=== PATIENT | female | born 1980 | race Caucasian/White ===

== ENCOUNTER 2017-03-02 21:56 | Emergency (ER) | payer BC, SELFPAY ==
[2017-03-02 21:56] VITALS: BMI 34.0
[2017-03-02 22:02] VITALS: BP 138/84; PULSE 86; RESP 16; TEMP 98.7; O2SAT 100
--- NOTE | 2017-03-02 23:16 | ED PDOC ---
Lower Extremity Pain/Injury Time Seen by Provider: 03/02/17 22:04 Chief Complaint (Nursing): Lower Extremity Problem/Injury Chief Complaint (Provider): Left knee injury - Fell History Per: Patient History/Exam Limitations: no limitations Onset/Duration Of Symptoms: Hrs Current Symptoms Are (Timing): Still Present Severity: Moderate Pain Scale Rating Of: 6 Additional Complaint(s): Pain and swelling, left knee. No medications for pain. Past Medical History Reviewed: Historical Data, Nursing Documentation, Vital Signs Vital Signs: Last Vital Signs Temp 98.7 F 03/02/17 22:00 Pulse 86 03/02/17 22:00 Resp 16 03/02/17 22:00 BP 138/84 03/02/17 22:00 Pulse Ox 100 03/02/17 22:00 - Medical History PMH: No Chronic Diseases - Surgical History Surgical History: No Surg Hx - Family History Family History: States: No Known Family Hx - Living Arrangements Living Arrangements: With Family - Social History Current smoker - smoking cessation education provided: No - Allergies Allergies/Adverse Reactions: Allergies Allergy/AdvReac Type Severity Reaction Status Date / Time No Known Allergies Allergy Verified 03/02/17 22:00 Review of Systems ROS Statement: Except As Marked, All Systems Reviewed And Found Negative Constitutional: Negative for: Fever, Chills Musculoskeletal: Positive for: Other (Left knee pain) Skin: Negative for: Bruising Physical Exam - Reviewed Nursing Documentation Reviewed: Yes Vital Signs Reviewed: Yes - Physical Exam Appears: Positive for: Well, Non-toxic, No Acute Distress Head Exam: Positive for: ATRAUMATIC, NORMAL INSPECTION, NORMOCEPHALIC Skin: Positive for: Normal Color (No ecchymosis ), Warm Eye Exam: Positive for: Normal appearance ENT: Positive for: Normal ENT Inspection Neck: Positive for: Normal, Painless ROM Respiratory: Negative for: Accessory Muscle Use, Respiratory Distress Pulses-Dorsalis Pedis (L): 2+ Pulses-Post. Tibialis (L): 2+ Pulses-Post. Tibialis (R): 2+ Back: Positive for: Normal Inspection Extremity: Positive for: Tenderness (Patella ), Swelling (Suprapatella). Negative for: Normal ROM (Decreasd flexion due to pain ) Neurologic/Psych: Positive for: Alert, Oriented - ECG O2 Sat by Pulse Oximetry: 100 Medical Decision Making Medical Decision Making: X-ray normal. Knee immobilizer and crutches. Disposition - Clinical Impression Clinical Impression: Knee injury - Patient ED Disposition Is Patient to be Admitted: No Counseled Patient/Family Regarding: Diagnosis, Need For Followup, Rx Given - Disposition Referrals: Orlando Negrete III, MD [Staff Provider] - Disposition: Routine/Home Disposition Time: 23:19 Condition: GOOD Additional Instructions: Ice, elevation, motrin. Follow-up with orthopedics. Instructions: Knee Immobilizer (ED)
--- NOTE | 2017-03-03 08:18 | RAD ---
PROCEDURE: Left Knee Radiographs. HISTORY: POSTTRAUMATIC LEFT LOWER EXTREMITY PAIN. COMPARISON: None. FINDINGS: BONES: Normal. No fracture. JOINTS: Normal. No osteoarthritis. JOINT EFFUSION: None. OTHER FINDINGS: None. IMPRESSION: No acute findings related to/accounting for the clinical presentation. No preliminary report provided by emergency department personnel.
== END 2017-03-03 00:01 | disposition home or self-care (01) ==
LOC: H.ER 21:56
DX: S89.92XA Unspecified injury of left lower leg, initial encounter (principal); W19.XXXA Unspecified fall, initial encounter; Y92.89 Other specified places as the place of occurrence of the external cause

== ENCOUNTER 2017-12-31 21:50 | Emergency (ER) | payer BC ==
[2017-12-31 21:50] VITALS: BMI 34.0
[2017-12-31 22:21] VITALS: RESP 16
--- NOTE | 2017-12-31 22:56 | ED PDOC ---
HPI: Abdomen Time Seen by Provider: 12/31/17 22:26 Chief Complaint (Nursing): Abdominal Pain Chief Complaint (Provider): abdominal pain History Per: Patient History/Exam Limitations: no limitations Onset/Duration Of Symptoms: Days (2 weeks), Waxing/Waning Current Symptoms Are (Timing): Still Present Location Of Pain/Discomfort: LLQ Associated Symptoms: Nausea Additional Complaint(s): 37 y/o female presents for evaluation of left-sided abdominal pain x 2 weeks, worse as of 2 days. Associated nausea, loose stools. Denies fever, vomiting, chest pain, shortness of breath, palpitations, urinary symptoms, recent travel, sick contacts. Past Medical History Reviewed: Historical Data, Nursing Documentation, Vital Signs Vital Signs: Last Vital Signs Temp 98.8 F 12/31/17 22:16 Pulse 69 12/31/17 22:16 Resp 16 12/31/17 22:16 BP 126/83 12/31/17 22:16 Pulse Ox 99 01/01/18 01:39 - Medical History PMH: Hypercholesterolemia - Surgical History Surgical History: - Family History Family History: States: No Known Family Hx - Living Arrangements Living Arrangements: With Family - Home Medications Home Medications: Ambulatory Orders Medication Instructions Recorded Dicyclomine [Bentyl] 20 mg PO TID PRN #15 tab 01/01/18 Famotidine [Pepcid] 20 mg PO BID #20 tab 01/01/18 - Allergies Allergies/Adverse Reactions: Allergies Allergy/AdvReac Type Severity Reaction Status Date / Time No Known Allergies Allergy Verified 12/31/17 22:16 Review of Systems ROS Statement: Except As Marked, All Systems Reviewed And Found Negative Gastrointestinal: Positive for: Abdominal Pain Physical Exam - Reviewed Nursing Documentation Reviewed: Yes Vital Signs Reviewed: Yes - Physical Exam Appears: Positive for: Well, Non-toxic, No Acute Distress Head Exam: Positive for: ATRAUMATIC, NORMAL INSPECTION, NORMOCEPHALIC Skin: Positive for: Normal Color Eye Exam: Positive for: Normal appearance ENT: Positive for: Normal ENT Inspection Cardiovascular/Chest: Positive for: Regular Rate, Rhythm Respiratory: Positive for: Normal Breath Sounds Gastrointestinal/Abdominal: Positive for: Bowel Sounds, Soft, Tenderness (LUQ, LLQ) Back: Positive for: Normal Inspection Extremity: Positive for: Normal ROM Neurologic/Psych: Positive for: Alert, Oriented (x3) - Laboratory Results Result Diagrams: 12/31/17 23:02 12/31/17 23:02 - ECG O2 Sat by Pulse Oximetry: 99 - Progress ED Course And Treament: labs, CT abd/pelvis, urine EXAM: CT Abdomen and Pelvis With Intravenous Contrast CLINICAL HISTORY: 37 years old, female; Pain; Abdominal pain; Localized; Left lower quadrant (llq) ; Prior surgery; Surgery date: 6+ months; Surgery type: ; Additional info: Llq pain TECHNIQUE: Axial computed tomography images of the abdomen and pelvis with intravenous contrast. All CT scans at this facility use at least one of these dose optimization techniques: automated exposure control; mA and/or kV adjustment per patient size (includes targeted exams where dose is matched to clinical indication); or iterative reconstruction. Coronal and sagittal reformatted images were created and reviewed. CONTRAST: 90 mL of [id number] administered intravenously. COMPARISON: No relevant prior studies available. FINDINGS: Lung bases: Unremarkable. No mass. No consolidation. ABDOMEN: Liver: There is a diffuse decrease in hepatic parenchymal density, consistent with fatty infiltration. Gallbladder and bile ducts: The gallbladder is contracted.Multiple gallstones are present. No ductal dilation. Pancreas: Unremarkable. No mass. No ductal dilation. Spleen: Unremarkable. No splenomegaly. Adrenals: Unremarkable. No mass. Kidneys and ureters: Unremarkable. No solid mass. No hydronephrosis. Stomach and bowel: Mild diverticulosis is present in the sigmoid colon. There is no evidence of diverticulitis. There is no evidence of intestinal obstruction. PELVIS: Appendix: A normal appendix is identified. Bladder: Unremarkable. No mass. Reproductive: Unremarkable as visualized. ABDOMEN and PELVIS: Intraperitoneal space: Unremarkable. No free air. No significant fluid collection. Bones/joints: No acute fracture. No dislocation. Soft tissues: There is a fat-containing umbilical hernia. Vasculature: Unremarkable. No abdominal aortic aneurysm. Lymph nodes: There are multiple mildly prominent right lower quadrant mesenteric nodes measuring up to 1.5 cm. IMPRESSION: Mild diverticulosis. No acute diverticulitis. Patient educated on findings, discharged with rx pepcid, bentyl Advised bland diet Follow up PMD 2-3 days Return precautions given Disposition - Clinical Impression Clinical Impression: Abdominal pain - Patient ED Disposition Is Patient to be Admitted: No Counseled Patient/Family Regarding: Studies Performed, Diagnosis, Need For Followup, Rx Given - Disposition Disposition: Routine/Home Disposition Time: 01:59 Condition: IMPROVED Prescriptions: Dicyclomine [Bentyl] 20 mg PO TID PRN #15 tab PRN Reason: Pain, Mild (1-3) Famotidine [Pepcid] 20 mg PO BID #20 tab Instructions: Acute Abdomen (Belly Pain), Adult (DC) Forms: [employer] (Arabic) Print Language: PAKISTANI
[2017-12-31] MEDS: Sodium Chloride 0.9% 1,000 ML IV STA (23:13)
[2017-12-31 23:14] LABS: SQUAMOUS EPITHIAL 2 /hpf (0-5); URINE BILIRUBIN NEGATIVE (NEGATIVE); URINE BLOOD SMALL (NEGATIVE); URINE CLARITY CLEAR (Clear); URINE COLOR STRAW (YELLOW); URINE GLUCOSE (UA) NEG (Normal); URINE LEUKOCYTE ESTERASE NEG Leu/uL (Negative); URINE PROTEIN NEGATIVE (NEGATIVE); URINE UROBILINOGEN 0.2-1.0 mg/dL (0.2-1.0)
[2017-12-31 23:21] LABS: ALB/GLOB RATIO 1.2 (1.0-2.1); ALBUMIN 4.1 g/dL (3.5-5.0); ALT/SGPT 85 U/L (9-52); AST/SGOT 53 U/L (14-36); BLOOD UREA NITROGEN 10 mg/dl (7-17); CALCIUM 8.9 mg/dL (8.4-10.2); GFR AFRICAN-AMERICAN > 60; GFR NON-AFRICAN AMERICAN > 60; LIPASE 66 U/L (23-300)
[2017-12-31 23:22] LABS: BASO % 0.7 % (0.0-2.0); EOS # 0.2 K/uL (0.0-0.7); EOS % 2.3 % (0.0-4.0); HEMOGLOBIN 13.4 g/dL (12.0-16.0); LYMPH # 3.2 K/uL (1.0-4.3); LYMPH % 48.8 % (20.0-40.0); MEAN CELL VOLUME 84.5 fl (81.0-99.0); MEAN CORPUSCULAR HEMOGLOBIN 29.4 pg (27.0-31.0); MEAN CORPUSCULAR HGB CONC 34.8 g/dL (33.0-37.0); MEAN PLATELET VOLUME 7.8 fl (7.2-11.7); MONO # 0.6 K/uL (0.0-0.8); MONO % 8.8 % (0.0-10.0); NEUT # 2.6 K/uL (1.8-7.0); NEUT % 39.4 % (50.0-75.0); NRBC % 0.2 % (0.0-0.0); RBC 4.54 Mil/uL (3.80-5.20); RED CELL DISTRIBUTION WIDTH 12.8 % (11.5-14.5); WHITE BLOOD COUNT 6.6 K/uL (4.8-10.8)
[2017-12-31] MEDS ORDERED: Iohexol 300 100 ML IJ ONE (23:31)
[2017-12-31] MEDS ORDERED: Sodium Chloride 0.9% 50 ML IV ONE (23:31)
[2018-01-01 02:04] VITALS: BP 122/76; PULSE 75; TEMP 98.6; O2SAT 98
--- NOTE | 2018-01-01 12:22 | CT ---
Date of service: 12/31/2017 PROCEDURE: CT Abdomen and Pelvis with contrast HISTORY: Left lower quadrant pain. COMPARISON: None. TECHNIQUE: Contrast dose: 90 cc Omnipaque 300. Radiation dose: Total exam DLP = 678.44 mGy-cm. This CT exam was performed using one or more of the following dose reduction techniques: Automated exposure control, adjustment of the mA and/or kV according to patient size, and/or use of iterative reconstruction technique. FINDINGS: LOWER THORAX: Unremarkable. LIVER: Hepatic steatosis. No focal masses. No intrahepatic bile duct dilatation or perihepatic ascites. GALLBLADDER AND BILE DUCTS: Unremarkable. PANCREAS: Unremarkable. No gross lesion or ductal dilatation. SPLEEN: Unremarkable. ADRENALS: Unremarkable. No mass. KIDNEYS AND URETERS: Unremarkable. No hydronephrosis. No solid mass. VASCULATURE: Unremarkable. No aortic aneurysm. BOWEL: Diverticulosis without an acute inflammatory component or other associated pathologic process. APPENDIX: Normal appendix. PERITONEUM: Unremarkable. No free fluid. No free air. LYMPH NODES: Unremarkable. No enlarged lymph nodes. BLADDER: Unremarkable. REPRODUCTIVE: Mildly enlarged and anteverted uterus with likely follicles in both adnexa. BONES: No acute fracture. OTHER FINDINGS: None. IMPRESSION: No acute findings related to/accounting for the clinical presentation. Additional benign and/or incidental findings described above. Concordant results (preliminary interpretation) provided by [employer]. Procedure Completed: 23:48 Preliminary ([facility]) Report: Dictated and Authenticated: 00:48. Final Interpretation: 12:21 January 01, 2018.
== END 2018-01-01 02:03 | disposition home or self-care (01) ==
LOC: H.ER 21:50
DX: K57.90 Diverticulosis of intestine, part unspecified, without perforation or abscess without bleeding (principal); R10.32 Left lower quadrant pain; E78.00 Pure hypercholesterolemia, unspecified
CPT/HCPCS: 74177; 80053; 81003; 81025; 83690; 85025; 96360; 99284; J1885; J7030; Q9967

== ENCOUNTER 2018-03-22 02:54 | Emergency (ER) | payer BC ==
[2018-03-22 02:54] VITALS: BMI 34.0
[2018-03-22 03:05] VITALS: BP 133/87; RESP 16; TEMP 98
[2018-03-22] MEDS ORDERED: Oxycodone/Acetaminophen 5/325 mg Tab PO ONE (03:51)
[2018-03-22] MEDS ORDERED: Amoxicillin-Clav 875-125 mg Tab PO STA (03:51)
[2018-03-22] MEDS ORDERED: Amoxicillin-Clav 875-125 mg Tab PO ONE (04:16)
[2018-03-22] MEDS ORDERED: Oxycodone/Acetaminophen 5/325 mg Tab ONE (04:16)
--- NOTE | 2018-03-22 05:12 | ED PDOC ---
HPI: General Adult Time Seen by Provider: 03/22/18 03:35 Chief Complaint (Nursing): Headache Chief Complaint (Provider): right sided facial swelling History Per: Patient History/Exam Limitations: no limitations Onset/Duration Of Symptoms: Days (x1 week) Current Symptoms Are (Timing): Still Present Additional Complaint(s): Jovana Person is a 37 year old female, with no significant past medical history, who presents to the emergency department complaining of right sided facial swelling ongoing for x1 week. She initially thought the swelling would resolve on its own but it didn't and its now associated with pain. Patient states worsening swelling and pain prompted ED visit. She took no medications for pain. Patient reports chills but denies any fever, difficulty breathing or swallowing. No further medical complaints. PMD: None provided. Past Medical History Reviewed: Historical Data, Nursing Documentation, Vital Signs Vital Signs: Last Vital Signs Temp 98 F 03/22/18 03:02 Pulse 97 H 03/22/18 03:02 Resp 16 03/22/18 03:02 BP 133/87 03/22/18 03:02 Pulse Ox 98 03/22/18 03:02 - Medical History PMH: Hypercholesterolemia - Surgical History Surgical History: - Family History Family History: States: Unknown Family Hx - Home Medications Home Medications: Ambulatory Orders Medication Instructions Recorded Dicyclomine [Bentyl] 20 mg PO TID PRN #15 tab 01/01/18 Famotidine [Pepcid] 20 mg PO BID #20 tab 01/01/18 Amoxicillin/Clavulanate [Augmentin 1 tab PO BID #20 tab 03/22/18 875 MG-125 MG] Ibuprofen [Motrin] 600 mg PO TID #20 tab 03/22/18 - Allergies Allergies/Adverse Reactions: Allergies Allergy/AdvReac Type Severity Reaction Status Date / Time No Known Allergies Allergy Verified 12/31/17 22:16 Review of Systems ROS Statement: Except As Marked, All Systems Reviewed And Found Negative Constitutional: Positive for: Chills. Negative for: Fever ENT: Positive for: Other (right sided facial swelling and pain). Negative for: Throat Pain Respiratory: Negative for: Shortness of Breath Physical Exam - Reviewed Nursing Documentation Reviewed: Yes Vital Signs Reviewed: Yes - Physical Exam Appears: Positive for: No Acute Distress (comfortable) Head Exam: Positive for: ATRAUMATIC, NORMAL INSPECTION, NORMOCEPHALIC Skin: Positive for: Normal Color, Warm, Dry Eye Exam: Positive for: Normal appearance, EOMI, PERRL ENT: Positive for: Other (Normal dentition. Swelling in the area of the parotid gland on the right with tenderness but no erythema or lymphadenopathy) Neck: Positive for: Painless ROM Cardiovascular/Chest: Positive for: Regular Rate, Rhythm. Negative for: Murmur Respiratory: Positive for: Normal Breath Sounds. Negative for: Respiratory Distress Extremity: Positive for: Normal ROM (upper and lower extremities). Negative for: Deformity, Swelling Lymphatic: Negative for: Adenopathy Neurologic/Psych: Positive for: Alert, Oriented - ECG O2 Sat by Pulse Oximetry: 98 (RA) Pulse Ox Interpretation: Normal Medical Decision Making Medical Decision Making: Time: 03:35 Initial Impression: Parotitis Initial Plan: --Augmentin 1 tab PO --Motrin tab 600 mg PO --Percocet 5/325 mg tab 1 tab PO --Reevaluation 05:10 -Upon provider reevaluation patient is feeling better, is medically stable, and requires no further treatment in the ED at this time. Patient will be discharged home with Rx for augmentin and motrin. Counseling was provided and all questions were answered regarding diagnosis and need for follow up. Instructed patient on warm compresses to affected area. There is agreement to discharge plan. Return if symptoms persist or worsen. Scribe Attestation: Documented by Marty Rashid, acting as a scribe for Melo Bryan MD. Provider Scribe Attestation: All medical record entries made by the Scribe were at my direction and personally dictated by me. I have reviewed the chart and agree that the record accurately reflects my personal performance of the history, physical exam, medical decision making, and the department course for this patient. I have also personally directed, reviewed, and agree with the discharge instructions and disposition. Disposition - Clinical Impression Clinical Impression: Parotitis - Disposition Referrals: Mynor Zimmerman MD [Staff Provider] - Disposition Time: 05:10 Condition: GOOD Additional Instructions: JOVANA PERSON, thank you for letting us take care of you today. Your provider was Melo Bryan MD and you were treated for RIGHT FACE NUMBNESS. The emergency medical care you received today was directed at your acute symptoms. If you were prescribed any medication, please fill it and take as directed. It may take several days for your symptoms to resolve. Return to the Emergency Department if your symptoms worsen, do not improve, or if you have any other problems. Please contact your doctor or call one of the physicians/clinics you have been referred to that are listed on the Patient Visit Information form that is included in your discharge packet. Bring any paperwork you were given at discharge with you along with any medications you are taking to your follow up visit. Our treatment cannot replace ongoing medical care by a primary care provider outside of the emergency department. Thank you for allowing the [facility] team to be part of your care today. If you had an X-Ray or CT scan: A Radiologist will review the ED reading if any change in treatment is needed we will contact you. If you had a blood, urine, or wound culture: It will take several days for the results, if any change in treatment is needed we will contact you. If you had an STI test: It will take 48 hours for the results. Please call after 1 week if you have not heard back. Prescriptions: Amoxicillin/Clavulanate [Augmentin 875 MG-125 MG] 1 tab PO BID #20 tab Ibuprofen [Motrin] 600 mg PO TID #20 tab Instructions: Parotitis Forms: [employer] (Maori) Print Language: UKRAINIAN
[2018-03-22 05:29] VITALS: PULSE 89; O2SAT 97
== END 2018-03-22 05:27 | disposition home or self-care (01) ==
LOC: H.ER 02:54
DX: K11.20 Sialoadenitis, unspecified (principal); E78.00 Pure hypercholesterolemia, unspecified